=== PATIENT | female | born 1975 | race Two or more races ===

== ENCOUNTER 2022-05-30 10:47 | Emergency (ER) | payer OTHER, MEDICAID ==
[~2022-05-30] VITALS: Ht 165.1 cm; Wt 109.0 kg
[2022-05-30 11:20] VITALS: BP 111/41
[2022-05-30] MEDS ORDERED: KETOROLAC TROMETH 60MG/2ML VIAL IM ONE (12:00)
[2022-05-30] MEDS ORDERED: NEOMYCIN-BACITRACIN-POLYM 15GM TOP OINT TOP SCH (12:26)
[2022-05-30] MEDS ORDERED: TETANUS-DIPTH-ACEL PERTUSSIS 0.5ML SYR Tdap IM ONE (13:00)
[2022-05-30] MEDS ORDERED: IBUP800T26 PO (15:19)
[2022-05-30] MEDS ORDERED: HYDR-4902 PO (15:19)
== END 2022-05-30 15:31 | disposition home or self-care (01) ==
LOC: ER 10:47
DX: S02.2XXA Fracture of nasal bones, initial encounter for closed fracture (principal); S61.412A Laceration without foreign body of left hand, initial encounter; S61.411A Laceration without foreign body of right hand, initial encounter; S11.91XA Laceration without foreign body of unspecified part of neck, initial encounter; Y04.2XXA Assault by strike against or bumped into by another person, initial encounter; Y93.89 Activity, other specified; Y92.89 Other specified places as the place of occurrence of the external cause; Y99.8 Other external cause status
CPT/HCPCS: 12001; 70140; 90471; 90715; 96372; 99284; J1885